=== PATIENT | male | born 1965 ===

== ENCOUNTER 2020-11-18 14:30 | Emergency (ER) | payer MEDICARE, OTHER ==
[2020-11-18 16:10] LABS: HEMOGLOBIN 11.9 gm/dl (14.0-17.5); RED BLOOD COUNT 3.74 M/UL (4.20-5.50); WHITE BLOOD COUNT 9.9 K/UL (4.5-11.0)
[2020-11-18 16:32] LABS: BUN/CREATININE RATIO 16 (0-10)
[2020-11-18] MEDS ORDERED: ZITHROMAX250 MG PO (18:35)
[2020-11-18] MEDS ORDERED: VENTOLIN HFA 66.7 GM INH (18:35)
[2020-11-18] MEDS ORDERED: CEFUROXIME500 MG PO (18:35)
[2020-11-18] MEDS ORDERED: MEDROL4 MG PO (18:35)
== END 2020-11-18 18:43 | disposition home or self-care (01) ==
LOC: ER1 14:30
PROVIDERS: Preventive Medicine Occupational Medicine
DX: J18.9 Pneumonia, unspecified organism (principal); J06.9 Acute upper respiratory infection, unspecified; E10.9 Type 1 diabetes mellitus without complications; K21.9 Gastro-esophageal reflux disease without esophagitis; Z20.822 Contact with and (suspected) exposure to COVID-19; F17.200 Nicotine dependence, unspecified, uncomplicated; E03.9 Hypothyroidism, unspecified; Z88.8 Allergy status to other drugs, medicaments and biological substances; Z88.0 Allergy status to penicillin
CPT/HCPCS: 0240U; 36600; 71045; 80053; 82550; 82553; 82803; 83605; 83690; 83874; 83880; 84484; 85025; 85610; 85652; 85730; 86140; 87040; 93005; 96365; 96366; 96375; 99284; J0456; J1100